=== PATIENT | female | born 1970 | race Caucasian/White ===

== ENCOUNTER → 2019-10-16 | Day surgery (SDC) | payer OTHER, BC ==
--- NOTE | 2019-10-17 13:28 | PATH ---
Surgical Pathology Report Patient Name: SHABBIR THOMAS [facility]. Rec. #: [id number] /Age/Gender: 1970 (Age: 48) / F Account: [id number] Location: [facility] Taken: 10/16/2019 Received: 10/16/2019 Reported: 10/17/2019 Physicians: Cristo Javier M.D. Specimen(s) Received A: RIGHT BREAST WITH CALCIFICATIONS B: RIGHT BREAST WITHOUT CALCIFICATIONS Clinical History Nonpalpable lesion Mammographic findings: Microcalcification, suspicious Final Diagnosis A. BREAST, RIGHT, WITH CALCIFICATIONS, STEREOTACTIC BIOPSY: BENIGN BREAST TISSUE SHOWING FIBROCYSTIC CHANGES INCLUDING MICROCYSTS AND STROMAL FIBROSIS. CALCIFICATIONS ARE PRESENT IN ASSOCIATION WITH CYST CONTENTS. B. BREAST, RIGHT, WITHOUT CALCIFICATIONS, STEREOTACTIC BIOPSY: BENIGN BREAST TISSUE. Electronically Signed Teagan Awad M.D. Gross Description A. Received in formalin labeled "right breast with calcifications," are 7 tilley-yellow, cylindrical portions of fibroadipose tissue ranging from 0.3-1.1 cm in length and averaging 0.2 cm in diameter. The specimens are submitted in toto in one cassette. B. Received in formalin labeled "right breast without calcifications," is a 3.0 x 3.0 x 0.2 cm aggregate of tilley, irregular to cylindrical portions of fibroadipose tissue. The formalin is filtered and the specimen is entirely submitted in 2 cassettes. Time to formalin fixation: 5 minutes Total formalin fixation time: Approximately 6 hours. 10/16/201910/16/2019
== END | disposition home or self-care (01) ==
LOC: FMAMMOTONE 10:20
PROVIDERS: ATTEND Surgery Surgical Oncology
PROC: 0HBT3ZX Excision of Right Breast, Percutaneous Approach, Diagnostic (ICD-10-PCS; principal; 2019-10-16)
DX: N60.11 Diffuse cystic mastopathy of right breast (principal); N60.31 Fibrosclerosis of right breast; N64.89 Other specified disorders of breast; R92.1 Mammographic calcification found on diagnostic imaging of breast
CPT/HCPCS: 19081; 87899; 88305-TC; A4648